=== PATIENT | male | born 2000 | race Caucasian/White ===

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

== ENCOUNTER 2020-08-23 19:39 | Emergency (ER) | payer OTHER ==
[~2020-08-23 19:39] MED LIST: ADDERALL 30 MG30 MG PO; METRONIDAZOLE500 MG PO; NAPROXEN500 MG PO; ZOFRAN4 MG PO
[2020-08-23 20:37] LABS: BASOPHIL 0.4 % (0-2); HCT 43.3 % (42.0-52.0); HGB 14.2 g/dl (13.2-18.0); LYMPHOCYTE 34.1 % (15-48); MCH 27.9 pg (25.0-31.0); MCHC 32.8 g/dL (32.0-36.0); MCV 85.1 fL (78.0-100.0); MONOCYTE 6.4 % (0-12); MPV 9.7 fL (6.0-9.5); NEUTROPHIL 57.1 % (41-80); NRBC 0; PLT 282 K/uL (150-400); RBC 5.09 M/uL (4.70-6.00); RDW 12.8 % (11.5-14.0); WBC 7.4 K/uL (4.0-10.5)
[2020-08-23 21:12] LABS: ALBUMIN 3.6 g/dL (3.4-5.0); BILIRUBIN - TOTAL 0.5 mg/dL (0.2-1.0); BUN/CREAT RATIO (CALC) 23.2 RATIO; CREATININE 0.69 mg/dL (0.67-1.17); GLOBULIN (CALCULATION) 3.6 g/dL; POTASSIUM 3.7 mmol/L (3.5-5.1); TOTAL PROTEIN 7.2 g/dL (6.4-8.2)
== END 2020-08-23 21:32 | disposition home or self-care (01) ==
LOC: FER 19:39
PROVIDERS: Student in an Organized Health Care Education/Training Program
DX: R07.9 Chest pain, unspecified (principal); I10 Essential (primary) hypertension; R42 Dizziness and giddiness; Z79.899 Other long term (current) drug therapy
CPT/HCPCS: 36415; 71045; 80053; 84484; 85025; 93005

== ENCOUNTER 2021-01-22 22:56 | Emergency (ER) | payer OTHER ==
[2021-01-23] MEDS ORDERED: HYDROCODON-ACE1 EAC2 PO (00:28)
== END 2021-01-23 00:41 | disposition home or self-care (01) ==
LOC: FER 22:56
DX: S93.401A Sprain of unspecified ligament of right ankle, initial encounter (principal); W10.1XXA Fall (on)(from) sidewalk curb, initial encounter; Y92.009 Unspecified place in unspecified non-institutional (private) residence as the place of occurrence of the external cause
CPT/HCPCS: 73610